=== PATIENT | female | born 1970 | race Caucasian/White ===

== ENCOUNTER 2018-10-24 09:30 | Inpatient (IN) | payer BC, MEDICAID | END 2018-10-26 11:13 | disposition home or self-care (01) | LOC: ER 09:30 → ED HOLD 12:33 → PCU 3S 19:54 ==

== ENCOUNTER 2024-03-09 07:18 | Day surgery (SDC) | payer MEDICAID ==
[~2024-03-09] VITALS: Ht 166.4 cm; Wt 73.8 kg
[2024-03-09] VITALS (13 sets, daily range): BP systolic 105–145; BP diastolic 58–84; PULSE 75–97; RESP 10–17; TEMP 97.9; O2SAT 98–100
[~2024-03-09 07:18] MED LIST: ALBU8HFA PO; ASPI81TA52 PO; ATI1T PO; COR3.125T PO; FURO-150 PO; LISI2.5T14 PO; LORA2TAB PO; SPIR25TA5 PO
[2024-03-09] MEDS ORDERED: LISI5TAB22 PO (07:55)
[2024-03-09] MEDS ORDERED: CARV-50 PO (07:55)
[2024-03-09] MEDS ORDERED: SPIR25TA5 PO (07:55)
[2024-03-09] MEDS ORDERED: FURO20TA4 PO (07:55)
[2024-03-09 08:34] LABS: BASOPHILS # (AUTO) 0.1 X10'3 (0-0.2); BASOPHILS % (AUTO) 0.7 % (0-1); EOSINOPHILS # (AUTO) 0.1 X10'3 (0-0.9); EOSINOPHILS % (AUTO) 1.5 % (0-6); HEMATOCRIT 43.2 % (35.0-45.0); HEMOGLOBIN 14.8 g/dl (12.0-16.0); LYMPHOCYTES # (AUTO) 1.5 X10'3 (1.1-4.8); LYMPHOCYTES % (AUTO) 21.1 % (21-51); MEAN CORPUSCULAR HEMOGLOBIN 31.8 PG (27.0-31.0); MEAN CORPUSCULAR HGB CONC 34.2 g/dL (33.0-36.5); MEAN PLATELET VOLUME 10.2 FL (7.4-10.4); MONOCYTES # (AUTO) 0.4 X10'3 (0-0.9); MONOCYTES % (AUTO) 6.2 % (2-12); NEUTROPHILS % (AUTO) 70.5 % (42-75); PLATELET COUNT 147 X10'3 (140-440); RED BLOOD COUNT 4.64 X10'6 (4.20-5.60); RED CELL DISTRIBUTION WIDTH 13.9 % (11.5-14.5); WHITE BLOOD COUNT 7.1 X10'3 (4.5-11.0)
[2024-03-09 08:42] LABS: ALBUMIN 3.2 G/DL (3.4-5.0); ANION GAP 8 (8-16); BLOOD UREA NITROGEN 13 MG/DL (7-18); BUN/CREATININE RATIO 15.7 (10.0-20.0); CALCIUM 8.7 MG/DL (8.5-10.1); CHLORIDE 107 MMOL/L (99-107); CREATININE 0.83 MG/DL (0.40-0.90); GLUCOSE 110 MG/DL (70-104); POTASSIUM 4.1 MMOL/L (3.5-5.1); SODIUM 142 MMOL/L (135-145); TOTAL CARBON DIOXIDE 27.5 MMOL/L (24-32); eCRCL 71 ML/MIN; eGFR 72 ML/MIN
[2024-03-09 08:44] LABS: PROTHROMBIN TIME 10.5 SECONDS (9.0-12.0)
[2024-03-09] MEDS: fentaNYL/PF 50MCG/1 ML 2ML syringe IV ONE (11:31)
[2024-03-09] MEDS: MIDAZolam 1mg/ml 10ml vial IV ONE (11:31)
[2024-03-09] MEDS: glycopyrrolate 0.2mg/ml inj IV ONE (11:32)
== END 2024-03-09 12:15 | disposition home or self-care (01) ==
LOC: SSTAY O 07:18
PROVIDERS: ATTEND Internal Medicine Cardiovascular Disease
DX: I08.1 Rheumatic disorders of both mitral and tricuspid valves (principal); I11.0 Hypertensive heart disease with heart failure; I50.9 Heart failure, unspecified; E78.5 Hyperlipidemia, unspecified; Z87.891 Personal history of nicotine dependence
CPT/HCPCS: 36415; 80048; 83735; 85025; 85610; 93312; 93325; J2250; J3010; J3490; J7030